=== PATIENT | male | born 1945 | race Caucasian/White ===

== ENCOUNTER 2020-07-01 10:18 | Outpatient (REF) | payer MEDICARE, SELFPAY ==
[2020-07-02 21:42] LABS: Lyme Abs Screen <0.90 index
== END 2020-07-01 10:19 | disposition home or self-care (01) ==
LOC: HO.MANLDS 10:18
PROVIDERS: PCP Physician Assistant; Visit Provider Physician Assistant
DX: B99.9 Unspecified infectious disease (principal)
CPT/HCPCS: 86618

== ENCOUNTER → 2023-02-25 09:27 | Outpatient (BNVA) | payer MEDICARE, SELFPAY | PROVIDERS: PCP Physician Assistant; Visit Provider Physician Assistant ==

== ENCOUNTER 2023-07-23 10:07 | Day surgery (SDC) | payer MEDICARE, SELFPAY ==
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
[2023-07-23 10:49] VITALS: BP 129/87; PULSE 89; RESP 15; TEMP 36.8; O2SAT 95; BMI 26.1
--- NOTE | 2023-07-23 10:53 | W.PM.OPN ---
Operative Note Operative Note Date of Service: 07/23/23 Narrative: COLONOSCOPY TILL CECUM WITH SNARE POLYPECTOMY AND SUBMUCOSAL INJECTION Pre-op diagnosis: Colon cancer screening Post-op diagnosis:? Colon polyps, diverticulosis, hemorrhoids Endoscopist:? Vikki Guadarrama MD Anesthesia:?MAC Consent: Indications for the procedure and potential complications of bleeding, perforation, reaction to medications and missed diagnosis were discussed with the patient and informed consent was obtained. Instrument: Olympus CF H 190 L variable stiffness adult colonoscope Monitoring: Vital signs and clinical assessment, intermittent blood pressure monitoring, continuous EKG monitoring, Pulse oximetry and Carbon Dioxide monitoring were done throughout the procedure. Please see anesthesia flowsheet. Colon withdrawl time was 18 minutes. Procedure: The patient was placed in the left lateral decubitis position and pre-procedure medications were administered. After a digital rectal examination of the ano-rectum, the video colonoscope was inserted into the rectum and advanced through the colon to the cecum. The colonoscope was slowly withdrawn in a retrograde panoramic fashion and the colon mucosa was carefully examined including a retroflexed view of the rectum. Findings and interventions are described below. Procedure Difficulty: Without difficulty Findings: Terminal Ileum: Not evaluated Cecum: Normal Ascending Colon: Normal Transverse Colon: A 12-15 mm flat polyp in the distal TC at 65 cms. Polyp was raised with 3 cc of Eleview and removed with a hot snare A 7-8 mm sessile polyp - removed with a cold snare Descending Colon: Moderate diverticulosis Sigmoid Colon: A 9-10 mm sessile polyp - removed with a cold snare. Moderate diverticulosis Rectum: Normal Ano-rectum: Moderate internal hemorrhoids Colon preparation: Excellent Impression and Post Procedure Diagnosis: Colonoscopy Findings: Two small and one medium sized polyps removed Moderate diverticulosis seen in the left colon Moderate hemorrhoids on retroflexed exam. Plan: Await pathology results Patient has an appointment on 08/04/23 in the [facility] with LENNOX Jean. Repeat Colonoscopy interval based on path results - in 3-5 years if polyps are adenomatous and 10 years if polyps are hyperplastic. Colon polyps and diverticulosis handouts were given in the discharge area
[2023-07-23] MEDS: Lactated Ringers 1,000 ML 100 ML IVCONT (11:07)
[2023-07-23 11:43] VITALS: BP 114/72; PULSE 77; RESP 16; TEMP 36.4; O2SAT 97
[2023-07-23 12:05] VITALS: BP 118/78; PULSE 73; RESP 18; TEMP 36.1; O2SAT 98
== END 2023-07-23 14:05 | disposition home or self-care (01) ==
PROVIDERS: PCP Internal Medicine; Visit Provider Internal Medicine Gastroenterology
PROC: 0DJD8ZZ Inspection of Lower Intestinal Tract, Via Natural or Artificial Opening Endoscopic (ICD-10-PCS; CPT 45378; principal; 2023-07-23 11:20)
DX: Z12.11 Encounter for screening for malignant neoplasm of colon (principal); D12.3 Benign neoplasm of transverse colon; D12.5 Benign neoplasm of sigmoid colon; K57.30 Diverticulosis of large intestine without perforation or abscess without bleeding; K64.8 Other hemorrhoids; J45.909 Unspecified asthma, uncomplicated; Z79.899 Other long term (current) drug therapy; Z87.892 Personal history of anaphylaxis; Z88.1 Allergy status to other antibiotic agents
CPT/HCPCS: 45385; 45381; 88305; J0690; J2704

== ENCOUNTER → 2023-07-23 10:07 | Outpatient (BNV) | payer MEDICARE, SELFPAY | PROVIDERS: PCP Internal Medicine; Visit Provider Internal Medicine Gastroenterology | DX: Z12.11 Encounter for screening for malignant neoplasm of colon (principal); D12.5 Benign neoplasm of sigmoid colon; D12.3 Benign neoplasm of transverse colon; K64.8 Other hemorrhoids; K57.30 Diverticulosis of large intestine without perforation or abscess without bleeding | CPT/HCPCS: 45381; 45385 ==

== ENCOUNTER 2023-08-04 08:50 | Outpatient (AMB) | payer MEDICARE, SELFPAY ==
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
[2023-08-04 09:05] VITALS: BP 125/65; PULSE 76; BMI 26.5
== END 2023-08-04 09:56 | disposition home or self-care (01) ==
PROVIDERS: PCP Physician Assistant; Visit Provider Physician Assistant
DX: D12.6 Benign neoplasm of colon, unspecified (principal); K57.30 Diverticulosis of large intestine without perforation or abscess without bleeding; K64.9 Unspecified hemorrhoids
CPT/HCPCS: 99213

== ENCOUNTER → 2023-08-04 08:50 | Outpatient (BNVA) | payer MEDICARE, SELFPAY | PROVIDERS: PCP Physician Assistant; Visit Provider Physician Assistant | DX: D12.6 Benign neoplasm of colon, unspecified (principal); K57.30 Diverticulosis of large intestine without perforation or abscess without bleeding; K64.9 Unspecified hemorrhoids | CPT/HCPCS: 99212 ==